=== PATIENT | male | born 1975 | race Caucasian/White ===

== ENCOUNTER 2018-07-14 17:33 | Emergency (ER) | payer BC, OTHER, MEDICAID, SELFPAY ==
[2018-07-14 17:35] VITALS: BP 139/77; PULSE 81; RESP 20; TEMP 36.8; O2SAT 99
[2018-07-14 18:10] VITALS: BP 110/71; PULSE 80; RESP 19; O2SAT 98
--- NOTE | 2018-07-14 18:13 | ED.GENADULT ---
HPI - General Adult General Chief complaint: Dizziness Stated complaint: nausea/cold sweats/heartburn x14 days Time Seen by Provider: 07/14/18 17:44 Source: patient Mode of arrival: ambulatory Limitations: no limitations History of Present Illness HPI narrative: Patient is a 42-year-old male here for evaluation of what he describes as heartburn for the past 2 weeks. He also states that he has occasional episodes where he has a sudden onset of nausea associated with cold sweats and lightheadedness. He states that the cold sweats and lightheadedness are only associated with the nausea. He states that the other day he had 1 episode where he belched a very acidic substance. The heartburn is also an occasional paired he has no complaints of chest pain or shortness of breath. He does not take nonsteroidal anti-inflammatories. Denies alcohol use. States that he has been under quite a bit of stress recently secondary to a moved to the local area. Has not had any change in stool color. No black colored stool. No recent antibiotics. No recent travel. No fevers. States that a couple months ago he had about 2 days of severe left upper quadrant pain that has since resolved. He also states that he takes blood pressure medicines and ran out of 1 of his blood pressure medicine so he doubled up on a 2nd 1. He does not think that the lightheadedness is associated with that. Related Data Previous Rx's Medication Instructions Recorded sucralfate [Carafate] 5 ml PO QID PRN #420 ml 07/14/18 Allergies Allergy/AdvReac Type Severity Reaction Status Date / Time No Known Drug Allergies Allergy Verified 07/14/18 17:47 Review of Systems Constitutional Reports chills, Denies fever(s), Denies headache(s) and Denies weakness ENT Ears, Nose, Mouth, and Throat: Denies headache(s) and Reports disequilibrium Cardiovascular Denies chest pain, Denies syncope and Denies dyspnea Respiratory Denies dyspnea Gastrointestinal Gastrointestinal: Denies abdominal pain, Reports belching, Denies change in stool character, Denies diarrhea, Denies nausea and Denies vomiting Genitourinary Denies dysuria Musculoskeletal Denies myalgias, Denies arthralgias and Denies tingling Integumentary/Breasts Denies rash Neurologic Denies burning sensations, Denies confusion, Denies syncope, Denies headache(s), Denies focal weakness, Denies tingling, Reports disequilibrium and Denies weakness Psychiatric Denies confusion Hematologic/Lymphatic Denies easy bleeding and Denies easy bruising [facility] Medical History Hypertension (Acute) Social History Smoking Status: Current every day smoker Social History Smoking Status: Current every day smoker Exam Initial Vital Signs Initial Vital Signs: Vital Signs Temperature 98.2 F 07/14/18 17:35 Pulse Rate 81 07/14/18 17:35 Respiratory Rate 20 07/14/18 17:35 Blood Pressure 139/77 07/14/18 17:35 Pulse Oximetry 99 07/14/18 17:35 Const General: cooperative, healthy appearing, comfortable, well developed, well groomed and No acute distress Orientation: alert and awake HENMT Head: normal to inspection and normocephalic Resp Effort & Inspection: normal respiratory effort Auscultation: clear to auscultation bilaterally Cardio Rate: regular rate Rhythm: regular rhythm Pulses: radial pulses present GI Inspection: non-distended Palpation: soft, No firm and No tender Skin Lesions: no lesions Rashes: no rashes Neuro General: alert and awake Cognition: normal cognition Speech: speech normal Gait: normal gait Extrem General: normal to inspection and capillary refill normal Psych Appearance: grossly normal and well kempt Course Orders Ordered: ED Orders 07/14/18 17:42 EKG-12 Lead Stat 07/14/18 18:10 Complete Blood Count AUTO DIFF Stat Comprehensive Metabolic Panel Stat Lipase Stat Troponin I Stat Discontinued Medications Pantoprazole Sodium (Protonix) 40 mg IV NOW ONE Stop: 07/14/18 18:26 Last Admin: 07/14/18 18:45 Dose: 40 mg Vital Signs - 8 hr 07/14/18 17:35 07/14/18 18:10 07/14/18 18:30 Temperature 98.2 F Pulse Rate 81 80 74 Respiratory Rate 20 19 23 Blood Pressure 139/77 Blood Pressure [Left Arm] 110/71 111/65 Pulse Oximetry 99 98 99 07/14/18 19:00 Temperature Pulse Rate 80 Respiratory Rate 18 Blood Pressure Blood Pressure [Left Arm] 118/66 Pulse Oximetry 99 Medical Decision Making Lab Data Lab results reviewed: Yes I reviewed the patient's lab results. Result diagrams: 07/14/18 18:10 07/14/18 18:10 Lab Results 07/14/18 07/14/18 Range/Units 18:10 18:10 WBC 10.6 (4.5-11.0) X10^3/uL RBC 5.21 (4.5-5.9) X10^6/uL Hgb 14.1 (13.5-17.5) g/dL Hct 43.0 (41-53) % MCV 82.5 (80-100) fL MCH 27.2 (26-34) PG MCHC 32.9 (30-36) % RDW 13.8 (11.6-14.8) % Plt Count 364 (150-400) X10^3/uL Neut % (Auto) 58.7 (50-75) % Lymph % (Auto) 30.6 (25-40) % Gilchrist % (Auto) 6.6 (3-14) % Eos % (Auto) 2.9 (2-4) % Baso % (Auto) 1.2 (0-2) % Neut # (Auto) 6200 (7168-8914) /uL Lymph # (Auto) 3300 (5806-5920) /uL Gilchrist # (Auto) 700 (0-900) /uL Eos # (Auto) 300 (0-450) /uL Baso # (Auto) 100 (0-100) /uL Sodium 137 (137-145) mmol/L Potassium 4.0 (3.4-5.1) mmol/L Chloride 101 (98-107) mmol/L Carbon Dioxide 28 (22-32) mmol/L BUN 15 (9-20) mg/dL Creatinine 1.00 (0.66-1.25) mg/dL Estimated GFR > 60.0 (>60) mL/min BUN/Creatinine Ratio 15.0 (6-22) Glucose 99 (70-100) mg/dL Calcium 9.3 (8.4-10.2) mg/dL Total Bilirubin 0.3 (0.2-1.3) mg/dL AST 26 (17-59) IU/L ALT 41 (21-72) IU/L Alkaline Phosphatase 75 (38-126) U/L Troponin I < 0.012 (0.01-0.034) ng/mL Total Protein 7.2 (6.3-8.2) g/dL Albumin 4.0 (3.5-5.0) g/dL Globulin 3.2 (1.7-4.1) g/dL Albumin/Globulin Ratio 1.3 (1.0-2.8) Lipase 41 (23-300) U/L ECG Data Attestation: I personally reviewed and interpreted this ECG as follows: Prior ECG tracings: not available for review Interpretation: Sinus rhythm Ventricular rate is 71 Normal axis Normal intervals Normal QRS Normal QTC No ST T wave changes MDM Narrative Medical decision making narrative: Labs unremarkable. EKG is unremarkable. Troponin negative after 2 weeks symptoms. I have low suspicion for ACS. I do suspect that his symptoms are the result of reflux disease. He had a burping episode recently with an ascitic. Since that he states made his symptoms worse. He has waves of nausea that caused his lightheadedness. And then approximately 1 month ago had some left upper quadrant abdominal pain. He states that the Zantac he has been taking does help his symptoms somewhat. We did discuss the importance of him taking his proper blood pressure medications. Will sent home with prescription for Carafate. He was also given a phone number to establish primary care doctor here in the area. He is going to contact his old primary care doctor to discuss his blood pressure medicines. He was given strict return precautions and follow-up instructions. He expressed understanding and agreement with plan. Discharge Plan Departure Patient Disposition: Home Clinical Impression: Gastroesophageal reflux disease Qualifiers: Esophagitis presence: esophagitis presence not specified Qualified Code(s): K21.9 - Gastro-esophageal reflux disease without esophagitis Instructions: Gastroesophageal Reflux Disease (Alternative Therapy) Activity Restrictions/Additional Instructions: Recommend that you contact your primary doctor to discuss your blood pressure medications. Continue with the Zantac like we discussed. Start taking the Carafate like we discussed. You can also contact 360 talk with a health human resources compensation analyst here at the local hospital to establish her primary provider here in the area. Return to the emergency department for any new or worsening symptoms Prescriptions: New sucralfate [Carafate] 100 mg/mL suspension 5 ml PO QID PRN (Reason: reflux) Qty: 420 RF: 0
[2018-07-14 18:30] VITALS: BP 111/65; PULSE 74; RESP 23; O2SAT 99
[2018-07-14 18:39] LABS: Add Manual Diff / Slide Review NO; Basophils Absolute Auto 100 /uL (0-100); Basophils Percent Auto 1.2 % (0-2); Eosinophils Absolute Auto 300 /uL (0-450); Eosinophils Percent Auto 2.9 % (2-4); Hemoglobin 14.1 g/dL (13.5-17.5); Lymphocytes Absolute Auto 3300 /uL (1100-4500); Lymphocytes Percent Auto 30.6 % (25-40); Mean Corpuscular HGB Conc 32.9 % (30-36); Mean Corpuscular Hemoglobin 27.2 PG (26-34); Mean Corpuscular Volume 82.5 fL (80-100); Monocytes Absolute Auto 700 /uL (0-900); Monocytes Percent Auto 6.6 % (3-14); Neutrophils Absolute Auto 6200 /uL (1500-7000); Neutrophils Percent Auto 58.7 % (50-75); Platelet Count 364 X10^3/uL (150-400); Red Blood Cell Count 5.21 X10^6/uL (4.5-5.9); Red Cell Distribution Width 13.8 % (11.6-14.8); White Blood Cell Count 10.6 X10^3/uL (4.5-11.0)
[2018-07-14 18:43] LABS: Alanine Aminotransferase 41 IU/L (21-72); Albumin Globulin Ratio 1.3 (1.0-2.8); Alkaline Phosphatase 75 U/L (38-126); Aspartate Aminotransferase 26 IU/L (17-59); Bilirubin Total 0.3 mg/dL (0.2-1.3); Blood Urea Nitrogen 15 mg/dL (9-20); Calcium 9.3 mg/dL (8.4-10.2); Carbon Dioxide 28 mmol/L (22-32); Chloride 101 mmol/L (98-107); Estimated Glomerular Filt Rate > 60.0 mL/min (>60); Globulin 3.2 g/dL (1.7-4.1); Glucose 99 mg/dL (70-100); HEMOLYSIS < 15 (0-50); Lipase 41 U/L (23-300); Sodium 137 mmol/L (137-145); Total Protein 7.2 g/dL (6.3-8.2)
[2018-07-14] MEDS: PANTOPRAZOLE 40 MG VIAL IV (18:45)
[2018-07-14 18:55] LABS: Troponin I < 0.012 ng/mL (0.01-0.034)
[2018-07-14 19:00] VITALS: BP 118/66; PULSE 80; RESP 18; O2SAT 99
[2018-07-14 19:30] VITALS: BP 110/70; PULSE 88; RESP 17; O2SAT 97
[2018-07-14 19:47] VITALS: BP 110/70; PULSE 78; RESP 17; O2SAT 99
== END 2018-07-14 19:48 | disposition home or self-care (01) ==
PROVIDERS: Emergency Provider Emergency Medicine
DX: K21.9 Gastro-esophageal reflux disease without esophagitis (principal); R68.83 Chills (without fever); R42 Dizziness and giddiness
CPT/HCPCS: 36591; 80053; 83690; 84484; 85025; 93005; 93010; 96374; 99283; 99284; C9113

== ENCOUNTER 2018-12-10 21:44 | Emergency (ER) | payer OTHER, MEDICAID, SELFPAY ==
[2018-12-10 21:55] VITALS: BP 141/90; PULSE 91; RESP 18; TEMP 36.9; O2SAT 99; BMI 33.5
--- NOTE | 2018-12-10 22:06 | ED_ITS ---
HPI - Dental/Oral General Chief complaint: Dental/Oral Stated complaint: CYST RIGHT SIDE OF FACE Time Seen by Provider: 12/10/18 21:56 Source: patient Mode of arrival: Ambulatory Limitations: no limitations History of Present Illness HPI Narrative: Patient is a 43-year-old male who presents with a right lower dental pain. He says it has been ongoing for about a month he has appointment with a dentist in December. He was on 2 weeks of antibiotics a seem to help however it started coming back he feels like he has some swelling in the right side of his jaw. No neck pain no fevers no significant facial swelling. He denies any fevers. He has been taking Aleve for pain he took some about an hour ago. MD Complaint: tooth pain Teeth map: 1. Chronic a dental caries, no dental abscess. minimal right-sided facial swelling no abscess or fluctuation present Onset (ago): week(s) Duration: constant Severity: moderate Related Data Home Medications Medication Instructions Recorded Confirmed buprenorphine 12 mg-naloxone 3 mg See Rx Instructions SL DAILY 08/07/18 12/07/18 sublingual film Previous Rx's Medication Instructions Recorded bupropion HCl 300 mg 24 hr tablet, 300 mg PO QAM #90 tab 09/27/18 extended release hydroxyzine HCl 10 mg tablet 10 mg PO QID PRN #120 tab 09/27/18 amoxicillin 500 mg PO Q12H #20 cap 12/10/18 ibuprofen 800 mg PO Q8H PRN #30 tab 12/10/18 Allergies Allergy/AdvReac Type Severity Reaction Status Date / Time No Known Drug Allergies Allergy Verified 12/07/18 11:13 Review of Systems Review of Systems Narrative: GENERAL: Denies chills,fever HEENT: See HPI RESPIRATORY: Denies dyspnea, cough, wheezing CARDIOVASCULAR: Denies chest pain, palpitations GASTROINTESTINAL: Denies nausea, vomiting MUSCULOSKELETAL: Denies extremity pain, injury SKIN: No rash, no laceration, no pruritus NEUROLOGIC: Denies weakness, dizziness, headache, numbness 8 point review of systems is negative except for those stated above and HPI Patient History Medical History Medical History Anxiety (Chronic ~2002) Chicken pox (Resolved ~1992) Depression (Chronic ~2002) Hypertension (Chronic ~2015) Substance abuse (Chronic ~2002) Vision disorder (Chronic) Family History Family History Father Diabetes mellitus Mother Hypertension Sister Depression Anxiety Grandfather Cancer Grandmother Cancer Social History Social History Smoking Status: Current every day smoker alcohol intake frequency: 0-2 drinks per day Substance Use Type: does not use Exam Initial Vital Signs Initial Vital Signs: Vital Signs Temperature 98.5 F 12/10/18 21:55 Pulse Rate 91 H 12/10/18 21:55 Respiratory Rate 18 12/10/18 21:55 Blood Pressure 141/90 H 12/10/18 21:55 Pulse Oximetry 99 12/10/18 21:55 GENERAL: Well-appearing, well-nourished and in no acute distress. CARDIOVASCULAR: peripheral pulses in tact, cap refill <2 sec RESPIRATORY: No respiratory distress, speaks in full sentences without diffi culty [ABDOMEN: Soft, nontender, no guarding or rebound] EXTREMITIES: Normal range of motion, no clubbing or edema. Neurovascularly intact NEUROLOGICAL: Cranial nerves II through XII grossly intact. Normal gait and speech. SKIN: Warm, dry, no petechiae, no rashes or lesions. Course Orders Ordered: Discontinued Medications Amoxicillin ( Trimox 250mg Prepack) 1 bottle MISC SEEINSTR ONE Stop: 12/10/18 22:06 Last Admin: 12/10/18 22:12 Dose: 1 bottle Documented by: CPRUITT Vital Signs Vital signs: Vital Signs - 8 hr 12/10/18 21:55 12/10/18 22:22 Temperature 98.5 F Pulse Rate 91 H 91 H Respiratory Rate 18 16 Blood Pressure 141/90 H 141/90 H Pulse Oximetry 99 99 MDM - Dental/Oral MDM Narrative Medical decision making narrative: The patient has no significant swelling or pain in his neck. No sign of [place] angina at this time. However I did discuss this with him. Will start him on antibiotics. Discharge Plan Departure Patient Disposition: Home Clinical Impression: Dental caries Discharge Date/Time: 12/10/18 22:24 Instructions: DI for Dental Pain Activity Restrictions/Additional Instructions: *You have been diagnosed with dental pain *What to do: Monitor for worsening infection. Need to see dentist *Continue to take medications as directed--> [facility] [place] Amoxicillin 500 mg twice a day for 10 days *Follow up with your primary care provider in 2-3 days *Return to ER if you should have in increase swelling of the neck or the jaw, tongue pain, difficulty breathing or any new, worsening or concerning symptoms Prescriptions: New amoxicillin 500 mg capsule 500 mg PO Q12H Qty: 20 RF: 0 ibuprofen 800 mg tablet 800 mg PO Q8H PRN (Reason: pain) Qty: 30 RF: 0 No Action buprenorphine-naloxone [Suboxone] 12-3 mg film See Rx Instructions SL DAILY RF: 0 bupropion HCl 300 mg tablet extended release 24 hr 300 mg PO QAM Qty: 90 RF: 3 hydroxyzine HCl 10 mg tablet 10 mg PO QID PRN (Reason: anxiety) Qty: 120 RF: 1 Referrals: [facility] [Outside]
[2018-12-10] MEDS: AMOXICILLIN 250 MG PREPACK 1 BOTTLE MISC (22:12)
[2018-12-10 22:22] VITALS: BP 141/90; PULSE 91; RESP 16; O2SAT 99
== END 2018-12-10 22:24 | disposition home or self-care (01) ==
PROVIDERS: Emergency Provider Emergency Medicine
DX: K02.9 Dental caries, unspecified (principal)
CPT/HCPCS: 99282

== ENCOUNTER → 2019-01-15 14:22 | Outpatient (CLI) | payer OTHER, MEDICAID, SELFPAY ==
--- NOTE | 2019-01-15 14:25 | DI.US.S_ITS ---
PROCEDURE: US ABDOMEN LIMITED INDICATIONS: right upper quadrant pain intermittent rule out hernia TECHNIQUE: Real-time focused scanning was performed of the abdomen, with image documentation. COMPARISON: None. FINDINGS: Sonographic evaluation identifies no hernia or fascial defect through the peritoneal margin in the area of reported patient clinical concern for intermittent hernia. IMPRESSION: No hernia found at time of scanning despite aggressive maneuvers with Valsalva procedure, and scanning both at adjacent to the area of reported prior intermittent herniation. Occasionally CT scanning can detect a peritoneal defect no identifiable by ultrasound. CT scanning may be warranted, therefore. Dictated by: Misael Noyola M.D. on 01/15/2019 at 16:30 Approved by: Misael Noyola M.D. on 01/15/2019 at 16:31
== END ==
PROVIDERS: Visit Provider Nurse Practitioner
DX: R10.11 Right upper quadrant pain (principal)
CPT/HCPCS: 76705

== ENCOUNTER 2019-07-17 10:03 | Emergency (ER) | payer OTHER, MEDICAID, SELFPAY ==
--- NOTE | 2019-07-17 10:08 | DI.RAD.S_ITS ---
PROCEDURE: XR CHEST 1V INDICATIONS: Chest pressure TECHNIQUE: One view of the chest was acquired. COMPARISON: None. FINDINGS: Surgical changes and devices: None. Lungs and pleura: Lungs are clear. No pleural effusions or pneumothorax. Mediastinum: Mediastinal contours appear normal. Heart size is normal. Bones and chest wall: No suspicious bony lesions. Overlying soft tissues appear unremarkable. IMPRESSION: No acute pulmonary process. Dictated by: Abigail Villa M.D. on 07/17/2019 at 10:37 Approved by: Abigail Villa M.D. on 07/17/2019 at 11:00
[2019-07-17 10:10] VITALS: BP 140/92; PULSE 59; RESP 14; TEMP 36.7; O2SAT 96; BMI 32.5
--- NOTE | 2019-07-17 10:40 | ED.CHESTPAIN ---
HPI - Chest Pain General Chief Complaint: Chest Pain Stated Complaint: chest pressure/cold sweats x1 day Time Seen by Provider: 07/17/19 10:08 Source: patient Mode of arrival: Ambulatory Limitations: no limitations History of Present Illness HPI narrative: 43-year-old otherwise healthy male here for evaluation of left-sided/retrosternal chest pain. He states that it occurred this morning at approximately 0830. This was several hours after he woke up. He states it was a fairly sudden onset. He is unable to describe the character of the pain. Unsure exactly how long it lasted. Was not associated with shortness of breath. Not worse with movement or palpation or eating or swallowing or breathing. Has never had anything like this before. Since that time it has come and gone. The time my evaluation he says it was there ?slightly? does express some subjective fevers over the past day. No coughing. No belly pain. No nausea vomiting. Has not tried anything for his symptoms. Related Data Home Medications Medication Instructions Recorded Confirmed buprenorphine 12 mg-naloxone 3 mg See Rx Instructions SL DAILY 08/07/18 03/21/19 sublingual film Previous Rx's Medication Instructions Recorded ibuprofen 800 mg PO Q8H PRN #30 tab 12/10/18 albuterol sulfate 90 mcg/actuation 2 puff INHALATION Q4-6H PRN #8.5 01/14/19 aerosol inhaler gram bupropion HCl 300 mg 24 hr tablet, 300 mg PO QAM #90 tab 03/21/19 extended release hydroxyzine HCl 10 mg tablet 10 mg PO QID PRN #120 tab 07/01/19 Allergies Allergy/AdvReac Type Severity Reaction Status Date / Time No Known Drug Allergies Allergy Verified 07/17/19 10:21 Review of Systems Constitutional Constitutional: Denies chills and Reports fever(s) (Subjective) Cardiovascular Cardiovascular: Reports chest pain, Denies rapid heart rate, Denies edema, Denies irregular heart rhythm, Denies palpitations and Denies dyspnea Respiratory Respiratory: Denies cough and Denies dyspnea Gastrointestinal Gastrointestinal: Denies abdominal pain, Denies nausea and Denies vomiting Musculoskeletal Musculoskeletal: Denies myalgias and Denies arthralgias Integumentary/Breasts Skin/Breast: Denies lesions and Denies rash Neurologic Neurologic: Denies behavioral changes Psychiatric Psychiatric: Denies behavioral changes Endocrine Endocrine: Denies palpitations Hematologic/Lymphatic Hematologic/Lymphatic: Denies easy bleeding and Denies easy bruising Patient History Medical History Anxiety (Chronic ~2002) Chicken pox (Resolved ~1992) Depression (Chronic ~2002) Hypertension (Chronic ~2015) Substance abuse (Chronic ~2002) Vision disorder (Chronic) Surgical History (Updated 11/12/18 @ 09:26 by Porfirio Goncalves MD) Anesthesia (Resolved) History of knee surgery (Resolved) Social History Smoking Status: Current every day smoker Smoking Status: Current every day smoker alcohol intake frequency: 0-2 drinks per day Substance Use Type: does not use and marijuana Exam Initial Vital Signs Initial Vital Signs: Vital Signs Temperature 98.0 F 07/17/19 10:10 Pulse Rate 59 L 07/17/19 10:10 Respiratory Rate 14 07/17/19 10:10 Blood Pressure 140/92 H 07/17/19 10:10 Pulse Oximetry 96 07/17/19 10:10 Const General: cooperative, comfortable and well developed Limitations: mental status not altered HENMT Head: normal to inspection and normocephalic Chest Chest: No crepitus and No tenderness Resp Effort & Inspection: normal respiratory effort Auscultation: clear to auscultation bilaterally Cardio Rate: regular rate Rhythm: regular rhythm GI Inspection: non-distended Palpation: soft Skin Lesions: no lesions Rashes: no rashes Neuro General: alert and awake Cognition: normal cognition Speech: speech normal Extrem General: normal to inspection and capillary refill normal Psych Appearance: grossly normal and well kempt Scores GCS Higinio coma scale eye opening: Spontaneous Higinio coma scale verbal response: Orientated [place] coma scale motor response: Obey commands Higinio coma scale total score: 15 HEART Score Heart Score history: Slightly Suspicious Heart Score EKG: Normal Heart Score Age: < 45 years old Heart Score risk factors: No known risk factors Heart Score troponin: < or = to normal limit Heart Score Total: 0 Course Orders Ordered: ED Orders 07/17/19 10:08 XR chest 1V Stat EKG-12 Lead Stat 07/17/19 10:15 Complete Blood Count AUTO DIFF Stat Comprehensive Metabolic Panel Stat Lipase Stat 07/17/19 11:34 Troponin I Stat Vital Signs Vital signs: Vital Signs - 8 hr 07/17/19 10:10 07/17/19 11:28 07/17/19 13:13 Temperature 98.0 F Pulse Rate 59 L 53 L 57 L Respiratory Rate 14 12 12 Blood Pressure 140/92 H Blood Pressure [Right Arm] 130/73 123/74 Pulse Oximetry 96 95 98 MDM - Chest Pain Lab Data Attestation: I reviewed the patient's lab results. Result diagrams: 07/17/19 10:15 07/17/19 10:15 Labs: Lab Results 07/17/19 07/17/19 07/17/19 Range/Units 10:15 10:15 11:34 WBC 6.1 (4.5-11.0) X10^3/uL RBC 5.59 (4.5-5.9) X10^6/uL Hgb 15.2 (13.5-17.5) g/dL Hct 45.7 (41-53) % MCV 81.7 (80-100) fL MCH 27.2 (26-34) PG MCHC 33.3 (30-36) % RDW 13.7 (11.6-14.8) % Plt Count 338 (150-400) X10^3/uL Neut % (Auto) 56.0 (50-75) % Lymph % (Auto) 31.8 (25-40) % Chase % (Auto) 7.6 (3-14) % Eos % (Auto) 3.8 (2-4) % Baso % (Auto) 0.8 (0-2) % Neut # (Auto) 3400 (9409-1950) /uL Lymph # (Auto) 1900 (8109-6811) /uL Chase # (Auto) 500 (0-900) /uL Eos # (Auto) 200 (0-450) /uL Baso # (Auto) 0 (0-100) /uL Sodium 137 (137-145) mmol/L Potassium 4.4 (3.4-5.1) mmol/L Chloride 105 (98-107) mmol/L Carbon Dioxide 25 (22-32) mmol/L BUN 15 (9-20) mg/dL Creatinine 0.92 (0.66-1.25) mg/dL Estimated GFR > 60.0 (>60) mL/min BUN/Creatinine Ratio 16.3 (6-22) Glucose 109 H (70-100) mg/dL Calcium 9.6 (8.4-10.2) mg/dL Total Bilirubin 0.5 (0.2-1.3) mg/dL AST 37 (17-59) IU/L ALT 33 (<50) IU/L Alkaline Phosphatase 77 (38-126) U/L Troponin I < 0.012 (0.01-0.034) ng/mL Total Protein 8.2 (6.3-8.2) g/dL Albumin 4.5 (3.5-5.0) g/dL Globulin 3.7 (1.7-4.1) g/dL Albumin/Globulin Ratio 1.2 (1.0-2.8) Lipase 44 (23-300) U/L Imaging Data Chest x-ray: Radiologist's Impression: [address] [address] XRay Report Signed Patient: Tylor Toledo JMR#: [id number] : 1975Acct:[id number] Age/Sex: 43 / MDate of Service: 07/17/19 Loc: ED Accession Number: [id number] Procedure: XR chest 1V Ordering Provider: David Jackson D.O. PROCEDURE: XR CHEST 1V INDICATIONS: Chest pressure TECHNIQUE: One view of the chest was acquired. COMPARISON: None. FINDINGS: Surgical changes and devices: None. Lungs and pleura: Lungs are clear. No pleural effusions or pneumothorax. Mediastinum: Mediastinal contours appear normal. Heart size is normal. Bones and chest wall: No suspicious bony lesions. Overlying soft tissues appear unremarkable. IMPRESSION: No acute pulmonary process. Dictated by: Abigail Villa M.D. on 07/17/2019 at 10:37 Approved by: Abigail Villa M.D. on 07/17/2019 at 11:00 ECG Data Attestation: I personally reviewed and interpreted this ECG as follows: Prior ECG tracings: not available for review Interpretation: Sinus rhythm Ventricular rate is 69 Normal axis Normal QRS Normal QTC No ST T wave changes Repeat EKG Sinus bradycardic sign ventricular rate of 52 Normal axis Normal QRS Normal QTC No ST T wave changes MDM Narrative Medical decision making narrative: Chest x-ray is unremarkable. Troponin negative. EKG unremarkable x2. Patient states the symptoms come and go. This is a low risk heart score. Discussed with him staying in the emergency department for 2nd troponin however the patient declined the 2nd test. We did discuss the risks and benefits of this. He expressed understanding. He was alert oriented x3. GCS 15. In my opinion has the capacity to make decisions patient was given return precautions and follow-up instructions. He expressed understanding and agreement Discharge Plan Departure Patient Disposition: Home Clinical Impression: Atypical chest pain, Bradycardia Instructions: DI for Atypical Chest Pain Activity Restrictions/Additional Instructions: Recommend that you talk with your primary provider about a follow-up and to discuss the indications for a stress test. Return to the emergency department for any new or worsening symptoms Prescriptions: No Action albuterol sulfate 90 mcg/actuation HFA aerosol inhaler 2 puff INHALATION Q4-6H PRN (Reason: bronchospasm) Qty: 8.5 RF: 0 hydroxyzine HCl 10 mg tablet 10 mg PO QID PRN (Reason: anxiety) Qty: 120 RF: 1 buprenorphine-naloxone [Suboxone] 12-3 mg film See Rx Instructions SL DAILY RF: 0 bupropion HCl 300 mg tablet extended release 24 hr 300 mg PO QAM Qty: 90 RF: 3 ibuprofen 800 mg tablet 800 mg PO Q8H PRN (Reason: pain) Qty: 30 RF: 0 Referrals: Alexandra Vidal ARNP [Primary Care Provider] -
[2019-07-17 11:16] LABS: Add Manual Diff / Slide Review NO; Basophils Absolute Auto 0 /uL (0-100); Basophils Percent Auto 0.8 % (0-2); Eosinophils Absolute Auto 200 /uL (0-450); Eosinophils Percent Auto 3.8 % (2-4); Hematocrit 45.7 % (41-53); Hemoglobin 15.2 g/dL (13.5-17.5); Lymphocytes Absolute Auto 1900 /uL (1100-4500); Lymphocytes Percent Auto 31.8 % (25-40); Mean Corpuscular HGB Conc 33.3 % (30-36); Mean Corpuscular Hemoglobin 27.2 PG (26-34); Mean Corpuscular Volume 81.7 fL (80-100); Monocytes Absolute Auto 500 /uL (0-900); Monocytes Percent Auto 7.6 % (3-14); Neutrophils Absolute Auto 3400 /uL (1500-7000); Platelet Count 338 X10^3/uL (150-400); Red Blood Cell Count 5.59 X10^6/uL (4.5-5.9); Red Cell Distribution Width 13.7 % (11.6-14.8); White Blood Cell Count 6.1 X10^3/uL (4.5-11.0)
[2019-07-17 11:21] LABS: Alanine Aminotransferase 33 IU/L (<50); Albumin 4.5 g/dL (3.5-5.0); Albumin Globulin Ratio 1.2 (1.0-2.8); Alkaline Phosphatase 77 U/L (38-126); Aspartate Aminotransferase 37 IU/L (17-59); BUN Creatinine Ratio 16.3 (6-22); Bilirubin Total 0.5 mg/dL (0.2-1.3); Blood Urea Nitrogen 15 mg/dL (9-20); Calcium 9.6 mg/dL (8.4-10.2); Carbon Dioxide 25 mmol/L (22-32); Chloride 105 mmol/L (98-107); Estimated Glomerular Filt Rate > 60.0 mL/min (>60); Globulin 3.7 g/dL (1.7-4.1); Glucose 109 mg/dL (70-100); HEMOLYSIS < 15 (0-50); Lipase 44 U/L (23-300); Potassium 4.4 mmol/L (3.4-5.1); Sodium 137 mmol/L (137-145); Total Protein 8.2 g/dL (6.3-8.2)
[2019-07-17 11:28] VITALS: BP 130/73; PULSE 53; RESP 12; O2SAT 95
[2019-07-17 11:57] LABS: Troponin I < 0.012 ng/mL (0.01-0.034)
--- NOTE | 2019-07-17 12:43 | PC.NURSE ---
Patient monitor alarmed 41PBM. Patient sleeping. woke patient asymptomatic at this time. Repeat EKG ordered. Provider Renetta aware. No additional orders at this time.
[2019-07-17 13:13] VITALS: BP 123/74; PULSE 57; RESP 12; O2SAT 98
--- NOTE | 2019-07-17 13:15 | PC.NURSE ---
patient is up at bedside. His BP was in the high 40s. His skin is flushed. He denies any lightheadedness or dizzyness or discomfort. He would like to be discharged before the repeat troponin 1 test is done.
[2019-07-17 13:17] VITALS: BP 123/98; PULSE 57; RESP 24; O2SAT 98
== END 2019-07-17 13:19 | disposition home or self-care (01) ==
PROVIDERS: Emergency Provider Emergency Medicine; PCP Nurse Practitioner
DX: R07.89 Other chest pain (principal); R00.1 Bradycardia, unspecified
CPT/HCPCS: 36415; 71045; 80053; 83690; 84484; 85025; 93005; 99284

== ENCOUNTER → 2019-09-15 15:09 | Outpatient (CLI) | payer OTHER, MEDICAID, SELFPAY ==
[2019-09-16 14:07] LABS: COVID19 Sendout Not Detected (Not Detect)
== END ==
PROVIDERS: PCP Nurse Practitioner; Visit Provider Physician Assistant
DX: Z01.812 Encounter for preprocedural laboratory examination (principal)
CPT/HCPCS: 87635

== ENCOUNTER → 2019-09-18 12:50 | Outpatient (CLI) | payer OTHER, MEDICAID, SELFPAY ==
--- NOTE | 2019-09-18 13:44 | PM.TREADMILL ---
Cardiac Stress Test Report Referral & Results Date Patient Seen: 09/18/19 Time Patient Seen: 13:30 Requesting provider: Alexandra Vidal Indication: Chest pain Rest ECG: Normal sinus rhythm Procedure Note: Today following both written and verbal informed consent, the patient was exercised according to a standard Pedro protocol. The patient exercised for a total of 10 minutes 57 seconds achieving a maximum heart rate of 190. Patient's maximum systolic blood pressure was 192. This was an estimated 12.8 METs. Normal hemodynamic response to exercise. No signs or symptoms of angina. Presenting symptom not reproduced on exercise. Occasional PVCs, but no other change in rhythm. No ST deviations. Normal exercise capacity (SYLVIA +5% on active scale). Impression: Low probability for ischemia. Greco treadmill score of 11 is correlated with 97% 5 year survival rate from cardiac causes of mortality. Consider non-cardiac cause for chief complaint. Please note: Actual ECG tracings can be found in the PACS system.
[2019-09-18 14:21] LABS: Hematocrit 45.2 % (41-53); Hemoglobin 14.5 g/dL (13.5-17.5); Mean Corpuscular Hemoglobin 26.6 PG (26-34); Mean Corpuscular Volume 83.3 fL (80-100); Platelet Count 337 X10^3/uL (150-400); Red Blood Cell Count 5.43 X10^6/uL (4.5-5.9); Red Cell Distribution Width 14.4 % (11.6-14.8); White Blood Cell Count 11.6 X10^3/uL (4.5-11.0)
[2019-09-18 14:35] LABS: Albumin 4.7 g/dL (3.5-5.0); Albumin Globulin Ratio 1.5 (1.0-2.8); Alkaline Phosphatase 90 U/L (38-126); Aspartate Aminotransferase 37 IU/L (17-59); BUN Creatinine Ratio 10.8 (6-22); Bilirubin Total 0.6 mg/dL (0.2-1.3); Blood Urea Nitrogen 10 mg/dL (9-20); Calcium 9.3 mg/dL (8.4-10.2); Carbon Dioxide 15 mmol/L (22-32); Chloride 104 mmol/L (98-107); Cholesterol 224 mg/dL (140-199); Estimated Glomerular Filt Rate > 60.0 mL/min (>60); Globulin 3.2 g/dL (1.7-4.1); Glucose 95 mg/dL (70-100); HDL Cholesterol 47 mg/dL (40-60); HEMOLYSIS < 15 (0-50); LDL Cholesterol Calculated 134 mg/dL (<100); Potassium 4.2 mmol/L (3.4-5.1); Sodium 137 mmol/L (137-145); Total Protein 7.9 g/dL (6.3-8.2); Triglycerides 216 mg/dL (35-150)
[2019-09-18 14:36] LABS: Neutrophils Absolute Manual 7772 /uL (3000-5900); RBC Morphology Normal Morphology; Total Cells Counted 100
[2019-09-18 14:41] LABS: Alanine Aminotransferase 36 IU/L (<50)
[2019-09-18 14:53] LABS: Free T3, Triiodothyronine Free 3.26 pg/mL (2.77-5.27); Free T4, Direct Thyroxine 1.21 ng/dL (0.78-2.19)
[2019-09-18 15:05] LABS: Prostate Specific Antigen 0.172 ng/mL (0.10-4.00)
[2019-09-18 15:07] LABS: Thyroid Stimulating Hormone 1.54 uIU/mL (0.47-4.68)
== END ==
PROVIDERS: PCP Nurse Practitioner; Referring Provider Nurse Practitioner; Visit Provider Nurse Practitioner
DX: Z00.00 Encounter for general adult medical examination without abnormal findings (principal); R07.89 Other chest pain; Z12.11 Encounter for screening for malignant neoplasm of colon
CPT/HCPCS: 36415; 80053; 80061; 84153; 84439; 84443; 84481; 85025; 93016; 93017; 93018

== ENCOUNTER 2019-12-03 17:36 | Emergency (ER) | payer OTHER, MEDICAID, SELFPAY ==
[2019-12-03 17:52] VITALS: BP 139/101; PULSE 68; RESP 14; TEMP 36.4; O2SAT 100; BMI 35.1
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
[2019-12-03] MEDS: IBUPROFEN 400 MG TABLET PO (18:30)
[2019-12-03] MEDS: TET,DIPH,PERTUSS(ACELL),VAC/PF 0.5 ML SYRINGE IM (18:31)
[2019-12-03] MEDS: ACETAMINOPHEN 325 MG TABLET 650 MG PO (18:31)
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
[2019-12-03] MEDS: SILVER SULFADIAZINE 1% CREAM 50 GM 1 APPLIC TOP (19:05)
[2019-12-03 20:17] VITALS: BP 138/82; PULSE 59; O2SAT 98
== END 2019-12-03 20:17 | disposition home or self-care (01) ==
PROVIDERS: Emergency Provider Nurse Practitioner Family; PCP Nurse Practitioner
DX: T23.201A Burn of second degree of right hand, unspecified site, initial encounter (principal); Z23 Encounter for immunization
CPT/HCPCS: 90471; 99283; 90715

== ENCOUNTER → 2019-12-10 10:54 | Outpatient (CLI) | payer OTHER, MEDICAID, SELFPAY ==
--- NOTE | 2019-12-10 11:20 | DI.RAD.S_ITS ---
PROCEDURE: XR CHEST 2V INDICATIONS: cough TECHNIQUE: 2 views of the chest were acquired. COMPARISON: [facility], CR, XR CHEST 1V, 07/17/2019, 10:25. FINDINGS: Surgical changes and devices: None. Lungs and pleura: No consolidative opacity. Small nodular opacity at the posterior inferior lung seen on the lateral projection. No pleural effusions or pneumothorax. Mediastinum: Mediastinal contours are normal. Heart size is normal. Bones and chest wall: No suspicious bony abnormalities. Soft tissues appear unremarkable. IMPRESSION: No consolidation to suggest pneumonia. Small nodular opacity at the posterior inferior lung seen on the lateral projection. This could represent a small pulmonary nodule. -this could be further evaluated with CT of the chest. Dictated by: Cody Chiu M.D. on 12/10/2019 at 15:05 Approved by: Cody Chiu M.D. on 12/10/2019 at 15:07
[2019-12-10 12:46] LABS: Add Manual Diff / Slide Review NO; Basophils Absolute Auto 100 /uL (0-100); Basophils Percent Auto 1.2 % (0-2); Eosinophils Absolute Auto 200 /uL (0-450); Eosinophils Percent Auto 2.8 % (2-4); Hematocrit 42.2 % (41-53); Hemoglobin 13.9 g/dL (13.5-17.5); Lymphocytes Absolute Auto 1700 /uL (1100-4500); Lymphocytes Percent Auto 20.7 % (25-40); Mean Corpuscular HGB Conc 32.9 % (30-36); Mean Corpuscular Volume 81.9 fL (80-100); Monocytes Absolute Auto 500 /uL (0-900); Monocytes Percent Auto 5.8 % (3-14); Neutrophils Absolute Auto 5500 /uL (1500-7000); Neutrophils Percent Auto 69.5 % (50-75); Platelet Count 307 X10^3/uL (150-400); Red Blood Cell Count 5.15 X10^6/uL (4.5-5.9); Red Cell Distribution Width 13.7 % (11.6-14.8)
[2019-12-10 13:20] LABS: Free T3, Triiodothyronine Free 3.13 pg/mL (2.77-5.27); Free T4, Direct Thyroxine 1.16 ng/dL (0.78-2.19)
[2019-12-10 13:34] LABS: Thyroid Stimulating Hormone 0.798 uIU/mL (0.47-4.68)
== END ==
PROVIDERS: Family Provider Nurse Practitioner; PCP Nurse Practitioner; Referring Provider Nurse Practitioner; Visit Provider Nurse Practitioner
DX: T23.201A Burn of second degree of right hand, unspecified site, initial encounter (principal); T23.231A Burn of second degree of multiple right fingers (nail), not including thumb, initial encounter; R63.4 Abnormal weight loss
CPT/HCPCS: 36415; 71046; 84439; 84443; 84481; 85025; 87070; 87077; 87147; 87186; 87205

== ENCOUNTER → 2019-12-11 10:16 | Outpatient (CLI) | payer OTHER, MEDICAID, SELFPAY ==
[2019-12-11 16:02] LABS: Alanine Aminotransferase 32 IU/L (<50); Albumin Globulin Ratio 1.3 (1.0-2.8); Alkaline Phosphatase 77 U/L (38-126); Aspartate Aminotransferase 29 IU/L (17-59); BUN Creatinine Ratio 14.6 (6-22); Bilirubin Total 0.5 mg/dL (0.2-1.3); Blood Urea Nitrogen 14 mg/dL (9-20); Calcium 9.4 mg/dL (8.4-10.2); Carbon Dioxide 27 mmol/L (22-32); Chloride 104 mmol/L (98-107); Estimated Glomerular Filt Rate > 60.0 mL/min (>60); Globulin 3.1 g/dL (1.7-4.1); Glucose 112 mg/dL (70-100); HEMOLYSIS < 15 (0-50); Potassium 4.8 mmol/L (3.4-5.1); Sodium 137 mmol/L (137-145); Total Protein 7.1 g/dL (6.3-8.2)
== END ==
PROVIDERS: Family Provider Nurse Practitioner; PCP Nurse Practitioner; Referring Provider Nurse Practitioner; Visit Provider Nurse Practitioner
DX: Z01.812 Encounter for preprocedural laboratory examination (principal)
CPT/HCPCS: 80053

== ENCOUNTER → 2019-12-16 11:35 | Outpatient (CLI) | payer OTHER, MEDICAID, SELFPAY | PROVIDERS: Family Provider Nurse Practitioner; PCP Nurse Practitioner; Referring Provider Nurse Practitioner; Visit Provider Family Medicine | DX: T23.231A Burn of second degree of multiple right fingers (nail), not including thumb, initial encounter (principal) | CPT/HCPCS: 16020; 99203; 99213 ==

== ENCOUNTER → 2019-12-17 12:07 | Outpatient (CLI) | payer OTHER, MEDICAID, SELFPAY ==
--- NOTE | 2019-12-17 12:43 | DI.CT.S_ITS ---
PROCEDURE: CT CHEST W CON INDICATIONS: pulmonary nodule on chest x-ray TECHNIQUE: After the administration of intravenous contrast, 5 mm thick sections acquired from the pulmonary apices to the posterior costophrenic angles. 1 mm axial lung, 5 mm thick coronal and sagittal reformats and 7 mm axial MIP were acquired. For radiation dose reduction, the following was used: automated exposure control, adjustment of mA and/or kV according to patient size. COMPARISON: [facility], CR, XR CHEST 2V, 12/10/2019, 11:08. FINDINGS: Image quality: Excellent. Lungs and pleura: No discrete pulmonary nodule or mass. No acute consolidation. No pleural effusions or pneumothorax. Central and peripheral airways are patent and normal in caliber. Mediastinum: Heart size is normal. No pericardial effusion. No mediastinal or hilar adenopathy by size criteria. There is triangular-shaped soft tissue in the anterior mediastinum compatible with residual thymus. Thoracic aorta and central pulmonary arteries are normal in size. Esophagus is normal in caliber. No hiatal hernia. Bones and chest wall: No suspicious bony lesions. No vertebral body compression fractures. No axillary or supraclavicular adenopathy by size criteria. Abdomen: Visualized upper abdominal solid organs appear normal. Upper abdominal bowel loops are normal in caliber. IMPRESSION: 1. No discrete pulmonary nodule or mass. The findings on prior chest x-ray likely represented overlapping vascular and bony structures. Dictated by: Satinder Can M.D. on 12/17/2019 at 13:01 Approved by: Satinder Can M.D. on 12/17/2019 at 13:12
== END ==
PROVIDERS: Family Provider Nurse Practitioner; PCP Nurse Practitioner; Referring Provider Nurse Practitioner; Visit Provider Nurse Practitioner
DX: R91.1 Solitary pulmonary nodule (principal)
CPT/HCPCS: 71260; Q9967

== ENCOUNTER 2020-06-29 19:22 | Emergency (ER) | payer OTHER, MEDICAID, SELFPAY ==
--- NOTE | 2020-06-29 19:32 | ED_ITS ---
HPI - Dental/Oral General Chief complaint: Dental/Oral Stated complaint: TOOTH INFECTION MIGRAINE HEADACHES Time Seen by Provider: 06/29/20 19:25 Source: patient Mode of arrival: Ambulatory Limitations: no limitations History of Present Illness HPI Narrative: 44-year-old male smoker with history of dental problems that had previously been addressed at the [facility], however he has had no follow-up since COVID, presents with a chief complaint of ongoing and worsening dental pain primarily on the left upper molars with associated facial swelling. He states he has been having trouble for at least the past few weeks but things are ramping up. He denies any swelling inside his mouth nor drainage of foul tasting fluid. He has had no fever or chills nor nausea or vomiting. He has been trying but unable to seek local dental care. He states he has had some mild generalized headache with gradual onset over the past few days. He denies any obvious provocation or palliation and denies any focal neurologic symptoms such as blurred vision, trouble with speech, numbness, tingling or weakness. He denies any neck pain. He denies the use of blood thinners. He denies any trauma MD Complaint: tooth pain Teeth map: 1. Onset (ago): month(s) Duration: intermittent Severity: moderate Relieving factors: nothing Exacerbating factors: chewing and heat Context: history of dental caries and poor dental care Treatment prior to arrival: none Related Data Home Medications Medication Instructions Recorded Confirmed buprenorphine 12 mg-naloxone 3 mg See Rx Instructions SL DAILY 08/07/18 12/10/19 sublingual film Previous Rx's Medication Instructions Recorded bupropion HCl 150 mg 24 hr tablet, 150 mg PO QAM #90 tab 10/07/19 extended release hydroxyzine HCl 10 mg tablet 10 mg PO QID PRN #120 tab 10/07/19 silver sulfadiazine 1 % topical 1 applictn TOP DAILY #25 gram 12/10/19 cream sulfamethoxazole 800 1 tab PO Q12H #28 tab 12/10/19 mg-trimethoprim 160 mg tablet varenicline 1 mg tablet 1 mg PO BID #56 tab 12/10/19 bupropion HCl 300 mg 24 hr tablet, 300 mg PO QAM #90 tab 05/06/20 extended release amoxicillin-pot clavulanate 1 tab PO BID #20 tab 06/29/20 [Augmentin] ketorolac 10 mg PO Q6H PRN #20 tab 06/29/20 Allergies Allergy/AdvReac Type Severity Reaction Status Date / Time No Known Drug Allergies Allergy Verified 12/10/19 10:02 Review of Systems Constitutional Constitutional: Denies chills, Denies fatigue, Denies fever(s), Denies frequent falls, Reports headache(s), Denies lethargy and Denies weakness Eyes Eyes: Denies change in vision, Denies eye discharge, Denies irritation and Denies loss of vision ENT Ears, Nose, Mouth, and Throat: Denies change in voice, Reports dental pain, Denies dizziness, Reports headache(s), Denies neck pain, Denies sore throat and Denies throat swelling Cardiovascular Cardiovascular: Denies chest pain, Denies irregular heart rhythm, Denies lightheadedness, Denies palpitations, Denies dyspnea, Denies dyspnea on exertion and Denies orthopnea Respiratory Respiratory: Denies cough, Denies dyspnea, Denies dyspnea on exertion and Denies wheezing Gastrointestinal Gastrointestinal: Denies abdominal pain, Denies change in bowel habits, Denies diarrhea, Denies nausea and Denies vomiting Musculoskeletal Musculoskeletal: Denies neck pain and Denies numbness Integumentary/Breasts Skin/Breast: Denies pruritus, Denies erythema, Denies rash and Denies wounds Neurologic Neurologic: Denies behavioral changes, Denies confusion, Denies dizziness, Denies frequent falls, Reports headache(s), Denies loss of vision, Denies numbness and Denies weakness Psychiatric Psychiatric: Denies anxiety, Denies behavioral changes, Denies confusion, Denies depression, Denies homicidal ideation and Denies suicidal ideation Endocrine Endocrine: Denies fatigue, Denies flushing and Denies palpitations Hematologic/Lymphatic Hematologic/Lymphatic: Denies easy bruising Allergic/Immunologic Allergic/Immunologic: Denies urticaria, Denies throat swelling and Denies wheezing Patient History Medical History Anxiety (~2002) Chicken pox (~1992) Depression (~2002) Elevated blood pressure reading in office with white coat syndrome, without diagnosis of hypertension Encounter for tobacco use cessation counseling Hypertension (~2015) Hypertriglyceridemia Pulmonary nodule Substance abuse (~2002) Tobacco use disorder Vision disorder Surgical History Anesthesia History of knee surgery Family History Father Diabetes mellitus Mother Hypertension Sister Depression Anxiety Grandfather Cancer Grandmother Cancer Social History Smoking Status: Former smoker Smoking Status: Former smoker alcohol intake frequency: holidays/special occasions only Substance Use Type: does not use and marijuana Exam Narrative Exam Narrative: GENERAL: [44] year old patient appears stated age. Well- nourished, well-developed patient, in mild distress. GCS 15 HEAD: Atraumatic. Normocephalic. No obvious facial swelling EYES: Pupils equal round and reactive. Extraocular motions intact. No scleral icterus. No injection or drainage. ENT: Poor dentition throughout, no obvious intraoral swelling, fluctuance or drainage, fractured tooth 16. Nose without bleeding, purulent drainage. Throat without erythema, tonsillar hypertrophy or exudate. Airway patent. NECK: Trachea midline. Non tender CARDIOVASCULAR: Regular rate and rhythm without murmurs, gallops, or rubs. RESPIRATORY: Clear to auscultation. Breath sounds equal bilaterally. No wheezes, rales, or rhonchi. GASTROINTESTINAL: Abdomen soft, non-tender, nondistended. EXTREMITIES: No edema or joint tenderness. BACK: Nontender without deformity or crepitance. No flank tenderness. NEURO: AOx3. SKIN: No rash or erythema of visible areas Initial Vital Signs Initial Vital Signs: Vital Signs Temperature 99.0 F 06/29/20 19:36 Pulse Rate 77 06/29/20 19:36 Respiratory Rate 18 06/29/20 19:36 Blood Pressure 141/79 H 06/29/20 19:36 Pulse Oximetry 98 06/29/20 19:36 Course Orders Ordered: Discontinued Medications Amoxicillin/Clavulanate Potassium (Amoxicillin/Clav 875/125 Mg) 1 tab PO NOW ONE Stop: 06/29/20 19:47 Last Admin: 06/29/20 19:57 Dose: 1 tab Documented by: STACY Ketorolac Tromethamine (Ketorolac 30 Mg/Ml Vial) 30 mg IM NOW ONE Stop: 06/29/20 19:47 Last Admin: 06/29/20 19:57 Dose: 30 mg Documented by: STACY Vital Signs Vital signs: Vital Signs - 8 hr 06/29/20 19:36 Temperature 99.0 F Pulse Rate 77 Respiratory Rate 18 Blood Pressure 141/79 H Pulse Oximetry 98 MDM - Dental/Oral MDM Narrative Medical decision making narrative: Headache considerations include, but not limited to: Subarachnoid hemorrhage, but unlikely as patient denies sudden onset of pain, not worst of life, or neck pain Meningitis considered, but thought unlikely given lack of Brudzinski's, Kernig's sign, altered mental status or fever Giant cell arteritis considered, but thought unlikely given lack of unilateral findings, pain in yarsanism, vision change HTN Emergency considered, but thought unlikely given normal vitals Other serious diagnoses considered unlikely given lack of red flag findings such as sudden onset, increasing frequency, immunocompromise, systemic signs (fever, chills, stiff neck, or rash), focal neurologic findings, trauma, blood thinners, etc. Headache thought to be likely to dental problems. Antibiotics chosen for his dental pain given the report of recent episodes of facial swelling and extensive history of dental trouble. Discharge Plan Departure Patient Disposition: Home Clinical Impression: Chronic dental pain, Dental infection Headache Qualifiers: Headache type: unspecified Headache chronicity pattern: unspecified pattern Intractability: not intractable Qualified Code(s): R51.9 - Headache, unspecified Activity Restrictions/Additional Instructions: *You have been diagnosed with [dental infection associated headache] *What to do: *Take medications as directed: Prescriptions were electronically transmitted to [facility] at your request *Follow up with your primary care provider in 2-3 days, call for an appointment. Let them know you were seen in the Emergency Department and that we ask that you be seen in follow up. I have given you contact information for the local dentist as we discussed, if they are unable to help you with a will least be a good resource for home you may contact next *Return to ER if you should have any new, worsening or concerning symptoms, such as [shaking chills, facial swelling, difficulty swallowing, fever > 101F, neck pain or stiffness, vomiting, confusion, seizure, focal weakness, vision change, speech deficit or other concerning symptoms ] Prescriptions: New ketorolac 10 mg tablet 10 mg PO Q6H PRN (Reason: pain) Qty: 20 RF: 0 amoxicillin-pot clavulanate [Augmentin] 875-125 mg tablet 1 tab PO BID Qty: 20 RF: 0 No Action bupropion HCl 300 mg tablet extended release 24 hr 300 mg PO QAM Qty: 90 RF: 0 buprenorphine-naloxone [Suboxone] 12-3 mg film See Rx Instructions SL DAILY RF: 0 hydroxyzine HCl 10 mg tablet 10 mg PO QID PRN (Reason: anxiety) Qty: 120 RF: 5 bupropion HCl 150 mg tablet extended release 24 hr 150 mg PO QAM Qty: 90 RF: 3 Chantix Continuing Month Box 1 mg tablet 1 mg PO BID Qty: 56 RF: 5 sulfamethoxazole-trimethoprim 800-160 mg tablet 1 tab PO Q12H Qty: 28 RF: 0 silver sulfadiazine 1 % cream 1 applictn TOP DAILY Qty: 25 RF: 0 Referrals: Jet Hi DMD [Physician] - Alexandra Vidal ARNP [Primary Care Provider] -
[2020-06-29 19:36] VITALS: BP 141/79; PULSE 77; RESP 18; TEMP 37.2; O2SAT 98
[2020-06-29] MEDS: AMOXICILLIN/CLAV 875/125 MG 1 TAB PO (19:57)
[2020-06-29] MEDS: KETOROLAC 30 MG/ML VIAL IM (19:57)
== END 2020-06-29 20:12 | disposition home or self-care (01) ==
PROVIDERS: Emergency Provider Emergency Medicine; Family Provider Nurse Practitioner; PCP Nurse Practitioner
DX: K04.7 Periapical abscess without sinus (principal); K08.89 Other specified disorders of teeth and supporting structures; R51.9 Headache, unspecified
CPT/HCPCS: 96372; 99283; J1885

== ENCOUNTER → 2021-05-05 16:13 | Outpatient (CLI) | payer OTHER, MEDICAID, SELFPAY ==
[2021-05-05 16:48] LABS: Add Manual Diff / Slide Review NO; Basophils Absolute Auto 100 /uL (0-100); Basophils Percent Auto 1.3 % (0-2); Eosinophils Absolute Auto 200 /uL (0-450); Eosinophils Percent Auto 2.2 % (2-4); Hematocrit 42.1 % (41-53); Hemoglobin 13.8 g/dL (13.5-17.5); Lymphocytes Absolute Auto 2700 /uL (1100-4500); Lymphocytes Percent Auto 28.9 % (25-40); Mean Corpuscular HGB Conc 32.8 % (30-36); Mean Corpuscular Hemoglobin 26.3 PG (26-34); Mean Corpuscular Volume 80.2 fL (80-100); Monocytes Absolute Auto 800 /uL (0-900); Monocytes Percent Auto 8.8 % (3-14); Neutrophils Absolute Auto 5400 /uL (1500-7000); Neutrophils Percent Auto 58.8 % (50-75); Platelet Count 318 X10^3/uL (150-400); Red Blood Cell Count 5.25 X10^6/uL (4.5-5.9); Red Cell Distribution Width 13.9 % (11.6-14.8); White Blood Cell Count 9.2 X10^3/uL (4.5-11.0)
[2021-05-05 17:08] LABS: Hemoglobin A1C% w Est Avg Glu 5.7 % (4.0-6.0)
[2021-05-05 17:10] LABS: Alanine Aminotransferase 48 IU/L (<50); Albumin 4.4 g/dL (3.5-5.0); Albumin Globulin Ratio 1.3 (1.0-2.8); Alkaline Phosphatase 54 U/L (38-126); Aspartate Aminotransferase 40 IU/L (17-59); BUN Creatinine Ratio 13.3 (6-22); Bilirubin Total 0.5 mg/dL (0.2-1.3); Blood Urea Nitrogen 15 mg/dL (9-20); Calcium 9.3 mg/dL (8.4-10.2); Carbon Dioxide 31 mmol/L (22-32); Chloride 105 mmol/L (98-107); Cholesterol 219 mg/dL (140-199); Estimated Glomerular Filt Rate > 60.0 mL/min (>60); Globulin 3.5 g/dL (1.7-4.1); Glucose 96 mg/dL (70-100); HDL Cholesterol 53 mg/dL (40-60); HEMOLYSIS 21 (0-50); LDL Cholesterol Calculated 115 mg/dL (<100); Potassium 4.3 mmol/L (3.4-5.1); Sodium 139 mmol/L (137-145); Total Protein 7.9 g/dL (6.3-8.2); Triglycerides 255 mg/dL (35-150)
[2021-05-05 17:25] LABS: Free T4, Direct Thyroxine 1.29 ng/dL (0.78-2.19)
[2021-05-05 17:39] LABS: Thyroid Stimulating Hormone 1.23 uIU/mL (0.47-4.68)
== END ==
PROVIDERS: Family Provider Nurse Practitioner; PCP Nurse Practitioner; Referring Provider Nurse Practitioner; Visit Provider Nurse Practitioner
DX: Z00.00 Encounter for general adult medical examination without abnormal findings (principal); F32.9 Major depressive disorder, single episode, unspecified; F41.9 Anxiety disorder, unspecified; E78.1 Pure hyperglyceridemia; R63.4 Abnormal weight loss; R03.0 Elevated blood-pressure reading, without diagnosis of hypertension
CPT/HCPCS: 36415; 80053; 80061; 83036; 84439; 84443; 84481; 85025

== ENCOUNTER → 2022-05-18 08:04 | Outpatient (CLI) | payer OTHER, MEDICAID, SELFPAY ==
[2022-05-18 08:29] LABS: Hematocrit 42.1 % (41-53); Hemoglobin 13.6 g/dL (13.5-17.5); Mean Corpuscular HGB Conc 32.2 % (30-36); Mean Corpuscular Hemoglobin 26.2 PG (26-34); Mean Corpuscular Volume 81.1 fL (80-100); Platelet Count 348 X10^3/uL (150-400); Red Blood Cell Count 5.19 X10^6/uL (4.5-5.9); Red Cell Distribution Width 13.7 % (11.6-14.8); White Blood Cell Count 5.5 X10^3/uL (4.5-11.0)
[2022-05-18 09:09] LABS: Free T3, Triiodothyronine Free 5.17 pg/mL (2.77-5.27); Free T4, Direct Thyroxine 1.19 ng/dL (0.78-2.19)
[2022-05-18 09:15] LABS: Alanine Aminotransferase 46 IU/L (<50); Albumin 4.3 g/dL (3.5-5.0); Albumin Globulin Ratio 1.2 (1.0-2.8); Alkaline Phosphatase 88 U/L (38-126); Aspartate Aminotransferase 40 IU/L (17-59); Bilirubin Total 0.5 mg/dL (0.2-1.3); Blood Urea Nitrogen 19 mg/dL (9-20); Calcium 8.9 mg/dL (8.4-10.2); Carbon Dioxide 30 mmol/L (22-32); Chloride 102 mmol/L (98-107); Cholesterol 226 mg/dL (140-199); Estimated Glomerular Filt Rate > 60 mL/min (>60); Globulin 3.7 g/dL (1.7-4.1); Glucose 91 mg/dL (70-100); HDL Cholesterol 60 mg/dL (40-60); HEMOLYSIS < 15 (0-50); LDL Cholesterol Calculated 138 mg/dL (<100); Sodium 138 mmol/L (137-145); Triglycerides 138 mg/dL (35-150)
[2022-05-18 09:22] LABS: Thyroid Stimulating Hormone 1.17 uIU/mL (0.47-4.68)
[2022-05-19 16:56] LABS: HIV 1 & 2 Ab/Ag 4th Gen Combo NEGATIVE (NEGATIVE); Hep C Virus Ab w/Reflex Quant NEGATIVE s/c (NEGATIVE)
== END ==
PROVIDERS: Family Provider Nurse Practitioner; PCP Nurse Practitioner; Referring Provider Nurse Practitioner; Visit Provider Nurse Practitioner
DX: Z00.00 Encounter for general adult medical examination without abnormal findings (principal); Z11.4 Encounter for screening for human immunodeficiency virus [HIV]; Z11.59 Encounter for screening for other viral diseases
CPT/HCPCS: 36415; 80053; 80061; 84439; 84443; 84481; 85027; 86803; 87389

== ENCOUNTER → 2022-08-22 15:51 | Outpatient (CLI) | payer OTHER, MEDICAID, SELFPAY ==
[2022-08-22 18:01] LABS: Free T3, Triiodothyronine Free 5.19 pg/mL (2.77-5.27); Free T4, Direct Thyroxine 1.09 ng/dL (0.78-2.19)
[2022-08-26 08:25] LABS: Percent Free Testosterone 1.69 % (1.50-4.20); Testosterone Free 2.49 ng/dL (5.00-21.00); Testosterone Total 147.2 ng/dL (264.0-916.0)
== END ==
PROVIDERS: Family Provider Nurse Practitioner; PCP Nurse Practitioner; Referring Provider Nurse Practitioner; Visit Provider Nurse Practitioner
DX: N52.9 Male erectile dysfunction, unspecified (principal); R53.83 Other fatigue
CPT/HCPCS: 36415; 84402; 84403; 84439; 84443; 84481

== ENCOUNTER → 2023-01-03 15:14 | Outpatient (CLI) | payer OTHER, MEDICAID, SELFPAY ==
[2023-01-03 18:34] LABS: Prostate Specific Antigen Scrn 0.128 ng/mL (0.1-4.0)
[2023-01-03 19:08] LABS: Creatinine Urine Random 148.2 mg/dL
[2023-01-03 19:26] LABS: Microalbumin Urine Random < 0.6 mg/dL (0-1.6)
[2023-01-10 10:02] LABS: Percent Free Testosterone 1.53 % (1.50-4.20); Testosterone Free 2.57 ng/dL (5.00-21.00); Testosterone Total 167.9 ng/dL (264.0-916.0)
== END ==
PROVIDERS: Family Provider Nurse Practitioner; PCP Nurse Practitioner; Referring Provider Nurse Practitioner; Visit Provider Nurse Practitioner
DX: Z00.00 Encounter for general adult medical examination without abnormal findings (principal); R79.89 Other specified abnormal findings of blood chemistry; Z12.5 Encounter for screening for malignant neoplasm of prostate
CPT/HCPCS: 36415; 82043; 82570; 84402; 84403; G0103

== ENCOUNTER 2023-05-02 07:58 | Day surgery (SDC) | payer OTHER, MEDICAID, SELFPAY ==
[2023-05-02 08:21] VITALS: BP 141/89; PULSE 85; RESP 18; TEMP 36.1; O2SAT 96
[2023-05-02] MEDS: LACTATED RINGERS 1,000 ML 42 ML IV (08:27)
--- NOTE | 2023-05-02 08:34 | P.HP_ITS ---
History of Present Illness History of Present Illness Date Patient Seen: 05/02/23 Time Patient Seen: 08:34 Chief complaint: Colonoscopy Narrative: 47-year-old man here for screening colonoscopy. No previous colonoscopy. No abdominal concerns today. No first-degree family members with history of colon cancer his grandfather in mid 50s from colon cancer. [facility] Medical History Erectile dysfunction Low testosterone in male Uncomplicated opioid use Insomnia History of tobacco use disorder Family history of colon cancer requiring screening colonoscopy Unintentional weight loss Pulmonary nodule Elevated blood pressure reading in office with white coat syndrome, without diagnosis of hypertension Encounter for tobacco use cessation counseling Tobacco use disorder Hypertriglyceridemia Obesity (BMI 35.0-39.9 without comorbidity) Intermittent right upper quadrant abdominal pain Infected tooth Vision disorder Substance abuse (~2002) Depression (~2002) Anxiety (~2002) Chicken pox (~1992) Opiate dependence Unwanted fertility Hypertension (~2015) Surgical History S/P vasectomy Anesthesia History of knee surgery Family History Father Diabetes mellitus Mother Hypertension Sister Depression Anxiety Grandfather Cancer Grandmother Cancer Social History Smoking Status: Former smoker alcohol intake: never Meds Home Medications and Allergies Home Medications Medication Instructions Recorded Confirmed Type tadalafil 20 mg tablet 20 mg PO DAILY PRN sexual activity 05/10/21 05/02/23 Rx #30 tabs bupropion HCl 150 mg 24 hr tablet, 150 mg PO QAM #90 tabs 05/23/22 05/02/23 Rx extended release bupropion HCl 300 mg 24 hr tablet, See Rx Instructions .Route 05/23/22 05/02/23 Rx extended release .COMPLEX #90 tabs hydroxyzine pamoate 50 mg capsule 50 mg PO QID PRN Insomnia or 05/23/22 05/02/23 Rx anxiety #360 caps phentermine 37.5 mg tablet 37.5 mg PO BID #180 tabs 01/05/23 05/02/23 Rx testosterone cypionate 200 mg/mL 100 mg (0.5 mL) IM Q2W #1 mL 01/18/23 05/02/23 Rx intramuscular oil (Depo-Testosterone) buprenorphine 8 mg-naloxone 2 mg 2.5 film buccal DAILY substance 05/01/23 05/02/23 Rx sublingual film (Suboxone) use disorder 30 days #45 ea Allergies Allergy/AdvReac Type Severity Reaction Status Date / Time No Known Drug Allergies Allergy Verified 05/02/23 08:13 Exam Vital Signs (past 8 hours): - 05/02/23 08:21 Temperature 96.9 F L Pulse Rate 85 Respiratory Rate 18 Blood Pressure 141/89 H Pulse Oximetry 96 Oxygen Delivery Method Room Air Oxygen Delivery Method Room Air Narrative Exam Narrative: General adult man alert oriented no acute distress Chest nonlabored respiration Extremities warm well perfused Assessment & Plan Assessment & Plan narrative: The patient requires colorectal screening and colonoscopy is recommended. Technical details were discussed. Risks, benefits, alternatives explained. Risks including but not limited to myocardial infarction, aspiration, bleeding, pain, missed lesion, incomplete examination, need for further radiographic studies, colonic perforation, and need for major abdominal surgery were discussed. All questions were answered to their satisfaction, and they are in agreement with this plan.
[2023-05-02 09:01] VITALS: BP 103/63; PULSE 78; RESP 16; TEMP 37; O2SAT 95
--- NOTE | 2023-05-02 09:02 | P.OP.COLON_ITS ---
Operative Date/Time/Diagnoses Date of procedure: 05/02/23 Time of procedure: 09:02 Pre-op diagnosis: Colorectal screening Procedure & Clinicians Study performed: Colonoscopy Same procedure as scheduled: Yes Indications: Colorectal screening Surgeon: Dejan Retana Procedure Notes Procedure in detail: The history and physical was performed/updated and the patient is ASA class is 2. The procedure was discussed in detail with the patient. Potential risks complications including infection, bleeding, missed diagnosis, perforation, need for surgery, and were explained. Their questions were answered and informed consent was obtained. Patient was brought to the procedure room and placed standard monitoring equipment. The patient's vital signs were monitored continuously throughout the entire procedure. Prior to starting time-out was performed. The patient was placed in the left lateral recumbent position. Procedural sedation was administered by anesthesia. Examination began with a thorough inspection of the perianal area there was no evidence of fissures, fistulae, external hemorrhoids or cutaneous malignancy. The colonoscopy scope was then placed into the anal canal and was advanced to the cecum, which was identified by the ileocecal valve , the appendiceal orifice and the confluence of the taenia. The scope was then slowly withdrawn examining colon thoroughly in all directions, irrigating it of any residual stool. The scope was retroflexed within the rectum The patient tolerated the procedure well. They will be discharged once criteria are met. The prep was of good/excellent quality. The withdrawl time was 6 minutes. FINDINGS * Unremarkable colonoscopy. Normal healthy colonic mucosa without masses polyps or inflammation. Specimen(s): none sent Impression: Normal colonoscopy Post-procedure Recommendations: Colonoscopy in 10 years Disposition: same day surgery
[2023-05-02 09:05] VITALS: BP 95/68; PULSE 89; RESP 22; O2SAT 95
[2023-05-02 09:10] VITALS: BP 118/79; PULSE 77; RESP 13; TEMP 36.8; O2SAT 94
== END 2023-05-02 09:20 | disposition home or self-care (01) ==
PROVIDERS: Family Provider Nurse Practitioner; PCP Nurse Practitioner; Referring Provider Surgery; Visit Provider Surgery
PROC: 0DJD8ZZ Inspection of Lower Intestinal Tract, Via Natural or Artificial Opening Endoscopic (ICD-10-PCS; CPT 45378; principal; 2023-05-02 08:45)
DX: Z12.11 Encounter for screening for malignant neoplasm of colon (principal)
CPT/HCPCS: 45378; J2704

== ENCOUNTER → 2023-06-19 16:18 | Outpatient (CLI) | payer OTHER, MEDICAID, SELFPAY ==
[2023-06-19 17:37] LABS: Add Manual Diff / Slide Review NO; Basophils Absolute Auto 300 /uL (0-100); Basophils Percent Auto 2.1 % (0-2); Eosinophils Absolute Auto 400 /uL (0-450); Eosinophils Percent Auto 3.4 % (2-4); Hematocrit 47.1 % (41-53); Hemoglobin 15.3 g/dL (13.5-17.5); Lymphocytes Absolute Auto 2900 /uL (1100-4500); Lymphocytes Percent Auto 21.6 % (25-40); Mean Corpuscular HGB Conc 32.4 % (30-36); Mean Corpuscular Hemoglobin 26.6 PG (26-34); Monocytes Absolute Auto 1200 /uL (0-900); Monocytes Percent Auto 8.9 % (3-14); Neutrophils Absolute Auto 8500 /uL (1500-7000); Platelet Count 412 X10^3/uL (150-400); Red Blood Cell Count 5.75 X10^6/uL (4.5-5.9); Red Cell Distribution Width 14.3 % (11.6-14.8); White Blood Cell Count 13.3 X10^3/uL (4.5-11.0)
[2023-06-19 18:39] LABS: Alanine Aminotransferase 37 IU/L (<50); Albumin 4.6 g/dL (3.5-5.0); Albumin Globulin Ratio 1.5 (1.0-2.8); Alkaline Phosphatase 75 U/L (38-126); Aspartate Aminotransferase 47 IU/L (17-59); BUN Creatinine Ratio 9.1 (6-22); Bilirubin Total 0.5 mg/dL (0.2-1.3); Blood Urea Nitrogen 9 mg/dL (9-20); Calcium 9.6 mg/dL (8.4-10.2); Carbon Dioxide 33 mmol/L (22-32); Chloride 105 mmol/L (98-107); Cholesterol 177 mg/dL (140-199); Estimated Glomerular Filt Rate > 60 mL/min (>60); Globulin 3.1 g/dL (1.7-4.1); Glucose 86 mg/dL (70-100); HDL Cholesterol 50 mg/dL (40-60); HEMOLYSIS < 15 (0-50); LDL Cholesterol Calculated 72 mg/dL (<100); Potassium 4.2 mmol/L (3.4-5.1); Sodium 140 mmol/L (137-145); Total Protein 7.7 g/dL (6.3-8.2); Triglycerides 275 mg/dL (35-150)
[2023-06-19 18:55] LABS: Free T3, Triiodothyronine Free 5.88 pg/mL (2.77-5.27); Free T4, Direct Thyroxine 0.85 ng/dL (0.78-2.19)
[2023-06-19 19:08] LABS: Thyroid Stimulating Hormone 1.46 uIU/mL (0.47-4.68)
== END ==
PROVIDERS: Family Provider Nurse Practitioner; PCP Nurse Practitioner; Referring Provider Nurse Practitioner; Visit Provider Nurse Practitioner
DX: Z00.00 Encounter for general adult medical examination without abnormal findings (principal)
CPT/HCPCS: 36415; 80053; 80061; 84439; 84443; 84481; 85025

== ENCOUNTER → 2023-06-21 16:26 | Outpatient (CLI) | payer OTHER, MEDICAID, SELFPAY | PROVIDERS: Family Provider Nurse Practitioner; PCP Nurse Practitioner; Referring Provider Nurse Practitioner; Visit Provider Nurse Practitioner | DX: N52.9 Male erectile dysfunction, unspecified (principal); R79.89 Other specified abnormal findings of blood chemistry; E29.1 Testicular hypofunction | CPT/HCPCS: 36415; 84402; 84403; 93005 ==

== ENCOUNTER 2024-06-02 02:37 | Emergency (ER) | payer OTHER, SELFPAY | END 2024-06-02 03:41 | disposition left against medical advice (07) | PROVIDERS: Emergency Provider Emergency Medicine; Family Provider Nurse Practitioner; PCP Student in an Organized Health Care Education/Training Program | DX: R07.9 Chest pain, unspecified (principal) ==

== ENCOUNTER 2024-06-10 22:21 | Emergency (ER) | payer OTHER, SELFPAY ==
[2024-06-10 22:27] VITALS: BP 154/102; PULSE 90; RESP 17; TEMP 37.2; O2SAT 97; BMI 31.7
--- NOTE | 2024-06-10 23:15 | DI.US.S_ITS ---
PROCEDURE: US PERIPH VENOUS LOW EXTREM RT INDICATIONS: PAIN, EDEMA TECHNIQUE: Real-time imaging, as well as color and pulse Doppler interrogation, were performed of the lower extremity deep veins from the inguinal ligament to the popliteal fossa, with documentation of the visualized calf veins. COMPARISON: None. FINDINGS: The common femoral, femoral, popliteal, and the visualized calf veins are normally compressible, and free of intraluminal thrombus. Color and pulse Doppler demonstrate normal phasic intraluminal flow. There is normal augmentation response to distal compression maneuver. IMPRESSION: No findings of lower extremity deep venous thrombosis. Approved by: Shahzad Mallory M.D. on 06/10/2024 at 23:49
[2024-06-11 00:09] VITALS: PULSE 74; O2SAT 96
[2024-06-11 00:10] VITALS: BP 139/85; PULSE 74; RESP 17; TEMP 36.8; O2SAT 97
--- NOTE | 2024-06-11 01:05 | ED.EXTPRO ---
HPI - Extremity Problem General Chief complaint: Extremity Problem,Nontraumatic Stated complaint: R lower leg swelling Time Seen by Provider: 06/11/24 01:05 Source: patient Mode of arrival: Ambulatory History of Present Illness HPI Narrative: Patient is a 48-year-old male history of depression chronic Suboxone use presenting today with right leg swelling. He reports it has been like that for about 24 hours. He reports he was very active up on his feet working all day denies any recent travel no prior history of blood clot. He denies any sort of pain. He has had chronic ongoing left arm pain with exertion and resolves at rest. He was scheduled to have a stress test and a couple of weeks. But he denies any chest pain arm pain or shortness of breath now. It is not any worse. Denies any fever or chills Related Data Previous Rx's Medication Instructions Recorded tadalafil 20 mg tablet 20 mg PO DAILY PRN sexual activity 05/10/21 #30 tabs hydroxyzine pamoate 50 mg capsule 50 mg PO QID PRN Insomnia or 06/12/23 anxiety #360 caps tirzepatide 2.5 mg/0.5 mL 5 mg SUBCUT QWEEK #2 mL 11/01/23 subcutaneous pen injector bupropion HCl 300 mg 24 hr tablet, 300 mg PO DAILY #30 tabs 04/29/24 extended release bupropion HCl 150 mg 24 hr tablet, 150 mg PO QAM #90 tabs 05/13/24 extended release buprenorphine 8 mg-naloxone 2 mg 2.5 film buccal DAILY substance 05/21/24 sublingual film (Suboxone) use disorder 30 days #75 ea testosterone cypionate 200 mg/mL 100 mg (0.5 mL) IM Q2W #1 mL 05/21/24 intramuscular oil (Depo-Testosterone) tirzepatide 2.5 mg/0.5 mL 2.5 mg (0.5 mL) SUBCUT QWEEK #2 mL 05/21/24 subcutaneous pen injector Allergies Allergy/AdvReac Type Severity Reaction Status Date / Time No Known Drug Allergies Allergy Verified 06/10/24 22:37 Patient History Medical History Class 2 obesity Hypogonadism in male Erectile dysfunction Low testosterone in male Uncomplicated opioid use Insomnia History of tobacco use disorder Family history of colon cancer requiring screening colonoscopy Unintentional weight loss Pulmonary nodule Elevated blood pressure reading in office with white coat syndrome, without diagnosis of hypertension Encounter for tobacco use cessation counseling Tobacco use disorder Hypertriglyceridemia Obesity (BMI 35.0-39.9 without comorbidity) Intermittent right upper quadrant abdominal pain Infected tooth Vision disorder Substance abuse (~2002) Depression (~2002) Anxiety (~2002) Chicken pox (~1992) Opiate dependence Unwanted fertility Hypertension (~2015) Surgical History S/P vasectomy Anesthesia History of knee surgery Family History Father Diabetes mellitus Mother Hypertension Sister Depression Anxiety Grandfather Cancer Grandmother Cancer Social History Smoking Status: Former smoker alcohol intake: never Smoking Status: Former smoker tobacco type: cigarettes alcohol intake frequency: holidays/special occasions only Exam Initial Vital Signs Initial Vital Signs: Vital Signs Temperature 98.9 F 06/10/24 22:27 Pulse Rate 90 06/10/24 22:27 Respiratory Rate 17 06/10/24 22:27 Blood Pressure 154/102 H 06/10/24 22:27 Pulse Oximetry 97 06/10/24 22:27 Oxygen Delivery Method Room Air 06/10/24 22:27 GENERAL: Alert pleasant well-appearing 48 male and in [no acute] distress. HEENT: Head atraumatic,EOMI, pupils reactive, face symmetric, [moist] mucous membranes CARDIOVASCULAR: Regular rate and rhythm without murmurs, rubs or gallops. RESPIRATORY: Breath sounds equal bilaterally, no wheezes rales or rhonchi. EXTREMITIES: Normal range of motion, no clubbing or edema. Neurovascularly intact Right lower extremity is more swollen than the left no significant tenderness in the calf more anterior pain non erythematous distal pedal pulse intact knee is stable NEUROLOGICAL: Alert and oriented x4.Normal gait and speech. SKIN: Warm, dry, no laceration, no petechiae, no rashes or lesions. Course Orders Ordered: ED Orders 06/10/24 23:15 US periph venous low extrem rt Stat Vital Signs Vital signs: Vital Signs - 8 hr 06/10/24 22:27 06/11/24 00:09 06/11/24 00:10 Temperature 98.9 F Pulse Rate 90 74 Respiratory Rate 17 Blood Pressure 154/102 H 139/85 Pulse Oximetry 97 96 Oxygen Delivery Method Room Air 06/11/24 00:10 06/11/24 01:23 06/11/24 01:23 Temperature 98.3 F Pulse Rate 74 76 Respiratory Rate 17 17 Blood Pressure 144/84 H Pulse Oximetry 97 98 Oxygen Delivery Method Room Air Room Air MDM - Extremity (Nontraumatic) Imaging Data US - DVT: Radiologist's Impression: PROCEDURE: US PERIPH VENOUS LOW EXTREM RT INDICATIONS: PAIN, EDEMA TECHNIQUE: Real-time imaging, as well as color and pulse Doppler interrogation, were performed of the lower extremity deep veins from the inguinal ligament to the popliteal fossa, with documentation of the visualized calf veins. COMPARISON: None. FINDINGS: The common femoral, femoral, popliteal, and the visualized calf veins are normally compressible, and free of intraluminal thrombus. Color and pulse Doppler demonstrate normal phasic intraluminal flow. There is normal augmentation response to distal compression maneuver. IMPRESSION: No findings of lower extremity deep venous thrombosis. Approved by: Shahzad Mallory M.D. on 06/10/2024 at 23:49 [facility] Narrative Medical decision making narrative: Patient presenting today with a acute right lower leg swelling no evidence of DVT on ultrasound or cellulitis on exam. Unclear what is causing swelling. I do recommend patient wear compression socks and that repeat ultrasound in 7-10 days. He was an outpatient stress test scheduled in not having any worsening chest discomfort at this time. Discharge Plan Departure Patient Disposition: Home Clinical Impression: Leg swelling Instructions: DI for Peripheral Edema-Unilateral Activity Restrictions/Additional Instructions: *You have been diagnosed with peripheral edema *What to do: At this time I do recommend compression socks repeat ultrasound in 7-10 days with PCP. Please follow-up with outpatient stress test. *Continue to take medications as directed *Follow up with your primary care provider in 2-3 days or call [phone] *Return to ER if you should have increasing leg pains chest pain shortness of breath swelling redness or any new, worsening or concerning symptoms Prescriptions: No Action buprenorphine-naloxone [Suboxone] 8-2 mg film 2.5 film buccal DAILY 30 Days Qty: 75 3RF testosterone cypionate [Depo-Testosterone] 200 mg/mL oil 100 mg IM Q2W Qty: 1 5RF tirzepatide 2.5 mg/0.5 mL pen injector 2.5 mg SUBCUT QWEEK Qty: 2 3RF Rx Instructions: for 4 weeks hydroxyzine pamoate 50 mg capsule 50 mg PO QID PRN (Reason: Insomnia or anxiety) Qty: 360 1RF Rx Instructions: Take 1 capsule up to 4x/day as needed for anxiety and insomnia. tirzepatide 2.5 mg/0.5 mL pen injector 5 mg SUBCUT QWEEK Qty: 2 3RF Rx Instructions: Inject 5mg SQ weekly. Ok to compound bupropion HCl 300 mg tablet extended release 24 hr 300 mg PO DAILY Qty: 30 4RF bupropion HCl 150 mg tablet extended release 24 hr 150 mg PO QAM Qty: 90 2RF tadalafil 20 mg tablet 20 mg PO DAILY PRN (Reason: sexual activity) Qty: 30 3RF Rx Instructions: administer 1/4 to 1/2 approximately 30min before sexual activity; do not use more than 1 dose per 24hrs Referrals: Rachael Davis MD [Primary Care Provider] - Stand Alone Forms: Patient Portal/API/Survey
[2024-06-11 01:23] VITALS: BP 144/84; PULSE 76; RESP 17; O2SAT 98
== END 2024-06-11 01:29 | disposition home or self-care (01) ==
PROVIDERS: Emergency Provider Emergency Medicine; Family Provider Nurse Practitioner; PCP Student in an Organized Health Care Education/Training Program
DX: R60.0 Localized edema (principal)
CPT/HCPCS: 93971; 99281; 99283

== ENCOUNTER → 2024-06-18 15:43 | Outpatient (CLI) | payer OTHER, SELFPAY ==
--- NOTE | 2024-06-18 15:45 | DI.RAD.S_ITS ---
PROCEDURE: XR KNEE RT 3V INDICATIONS: pain and swelling x 1 week incl proximal lower leg TECHNIQUE: 3 views of the knee were acquired. COMPARISON: None. FINDINGS: Bones: No fractures or dislocations. No suspicious bony lesions. Soft tissues: No joint effusion. No suspicious soft tissue calcifications. IMPRESSION: No acute bony abnormality or significant effusion. If there are persistent symptoms or clinical suspicion for pathology, then repeat radiographs or advanced imaging (CT or MRI) may be considered for further evaluation. Dictated by: Malcom Crouch M.D. on 06/18/2024 at 22:04 Approved by: Malcom Crouch M.D. on 06/18/2024 at 22:05
== END ==
PROVIDERS: Family Provider Nurse Practitioner; PCP Student in an Organized Health Care Education/Training Program; Referring Provider Physician Assistant; Visit Provider Physician Assistant
DX: M79.604 Pain in right leg (principal); M79.89 Other specified soft tissue disorders
CPT/HCPCS: 73562

== ENCOUNTER → 2024-06-19 08:23 | Outpatient (CLI) | payer OTHER, SELFPAY ==
[2024-06-19 08:53] LABS: Add Manual Diff / Slide Review NO; Basophils Absolute Auto 100 /uL (0-100); Basophils Percent Auto 1.8 % (0-2); Eosinophils Absolute Auto 200 /uL (0-450); Eosinophils Percent Auto 2.4 % (2-4); Hematocrit 50.1 % (41-53); Hemoglobin 16.4 g/dL (13.5-17.5); Lymphocytes Absolute Auto 1900 /uL (1100-4500); Lymphocytes Percent Auto 24.6 % (25-40); Mean Corpuscular HGB Conc 32.7 % (30-36); Mean Corpuscular Hemoglobin 27.6 PG (26-34); Mean Corpuscular Volume 84.5 fL (80-100); Monocytes Absolute Auto 600 /uL (0-900); Monocytes Percent Auto 8.6 % (3-14); Neutrophils Absolute Auto 4700 /uL (1500-7000); Neutrophils Percent Auto 62.6 % (50-75); Platelet Count 292 X10^3/uL (150-400); Red Blood Cell Count 5.93 X10^6/uL (4.5-5.9); Red Cell Distribution Width 13.6 % (11.6-14.8); White Blood Cell Count 7.5 X10^3/uL (4.5-11.0)
[2024-06-19 08:55] LABS: D Dimer 530 ng/ml (<500)
[2024-06-19 08:59] LABS: Uric Acid 5.2 mg/dL (3.5-8.5)
[2024-06-19 09:43] LABS: Erythrocyte Sedimentation Rate 1 MM/HR (0-15)
== END ==
PROVIDERS: Family Provider Nurse Practitioner; PCP Student in an Organized Health Care Education/Training Program; Referring Provider Physician Assistant; Visit Provider Physician Assistant
DX: M79.89 Other specified soft tissue disorders (principal)
CPT/HCPCS: 36415; 84550; 85025; 85379; 85651

== ENCOUNTER → 2024-06-20 07:36 | Outpatient (CLI) | payer OTHER, SELFPAY ==
--- NOTE | 2024-06-20 07:36 | DI.US.S_ITS ---
PROCEDURE: US [facility] VENOUS LOW EXTREM RT INDICATIONS: swelling lower leg, ddimer >500 TECHNIQUE: Real-time imaging, as well as color and pulse Doppler interrogation, were performed of the lower extremity deep veins from the inguinal ligament to the popliteal fossa, with documentation of the visualized calf veins. COMPARISON: [facility], [facility] VENOUS LOW EXTREM RT, 06/10/2024, 23:22. FINDINGS: The common femoral, femoral, popliteal, and the visualized calf veins are normally compressible, and free of intraluminal thrombus. Color and pulse Doppler demonstrate normal phasic intraluminal flow. There is normal augmentation response to distal compression maneuver. IMPRESSION: No findings of lower extremity deep venous thrombosis. Dictated by: Moe Cohn M.D. on 06/20/2024 at 8:25 Approved by: Moe Cohn M.D. on 06/20/2024 at 8:26
== END ==
PROVIDERS: Family Provider Nurse Practitioner; PCP Student in an Organized Health Care Education/Training Program; Referring Provider Physician Assistant; Visit Provider Physician Assistant
DX: M79.89 Other specified soft tissue disorders (principal)
CPT/HCPCS: 93971

== ENCOUNTER → 2024-06-21 08:34 | Outpatient (CLI) | payer OTHER, SELFPAY ==
--- NOTE | 2024-06-21 08:34 | DI.NM.S_ITS ---
PROCEDURE: NM EXERCISE TREADMILL NON NUC COMPARISON: None. INDICATIONS: chest pain and dyspnea on exertion FINDINGS: Patient exercised per the standard Pedro protocol. Total exercise time was 8 minutes and 39 seconds. Test was terminated secondary to fatigue. Maximal heart rate obtained is 152 bpm which is 87% of maximal predicted heart rate. Maximum blood pressure of 166/[place] [address]. SYLVIA +21%. 10.1 METS. No ischemic changes noted. No arrhythmias present. No chest pains voiced. Normal heart rate and blood pressure response to exercise. IMPRESSION: 1. Negative exercise treadmill stress test for ischemia. 2. Below average exercise tolerance. Dictated by: Walt Fraire M.D. on 06/21/2024 at 12:56 Approved by: Walt Fraire M.D. on 06/21/2024 at 12:57
== END ==
LOC: NUCM 08:34
PROVIDERS: Family Provider Nurse Practitioner; PCP Student in an Organized Health Care Education/Training Program; Referring Provider Student in an Organized Health Care Education/Training Program; Visit Provider Student in an Organized Health Care Education/Training Program
DX: R07.9 Chest pain, unspecified (principal); R06.02 Shortness of breath
CPT/HCPCS: 93017

== ENCOUNTER 2024-12-11 21:50 | Emergency (ER) | payer OTHER, SELFPAY ==
[2024-12-11 22:01] VITALS: BP 159/92; PULSE 74; RESP 16; TEMP 36.8; O2SAT 97; BMI 29.5
--- NOTE | 2024-12-11 22:10 | DI.RAD.S_ITS ---
PROCEDURE: XR FINGER LT MIN 2V INDICATIONS: cut tip of left index finger off TECHNIQUE: AP hand, 2 views of the 2nd finger(s) acquired. COMPARISON: None. FINDINGS: Bones: No fractures or dislocations. No suspicious bony lesions. Soft tissues: Bandaging over the 2nd digit tip. No suspicious soft tissue calcifications. IMPRESSION: No acute fracture is seen. Dictated by: Roberto Hinojosa M.D. on 12/11/2024 at 22:27 Approved by: Roberto Hinojosa M.D. on 12/11/2024 at 22:27
--- NOTE | 2024-12-12 00:56 | ED.WOUNDLAC ---
HPI - Wound/Laceration General Chief Complaint: Wound/Laceration Stated Complaint: Lt index finger laceration Time Seen by Provider: 12/12/24 00:55 Source: patient and old records reviewed Mode of arrival: Ambulatory Limitations: no limitations History of Present Illness HPI narrative: 49-year-old male history of hypertriglyceridemia who accidentally cut his index finger while cutting in the kitchen. Patient states complete avulsion of the tip. States this is about 6:00pm. in the evening he has not been able to get it to stop bleeding so presented to the ED. patient denies any other injuries. States tetanus is not up-to-date. Denies any anticoagulants states he takes Wellbutrin daily. Denies any allergies to medication. Former smoker. Related Data Previous Rx's ?Medication ?Instructions ?Recorded tirzepatide 2.5 mg/0.5 mL 5 mg SUBCUT QWEEK #2 mL 11/01/23 subcutaneous pen injector tirzepatide 2.5 mg/0.5 mL 2.5 mg (0.5 mL) SUBCUT QWEEK #2 mL 05/21/24 subcutaneous pen injector naproxen 500 mg tablet 500 mg PO BID #30 tabs 06/18/24 bupropion HCl 150 mg 24 hr tablet, 150 mg PO QAM #90 tabs 08/20/24 extended release bupropion HCl 300 mg 24 hr tablet, 300 mg PO DAILY #30 tabs 08/20/24 extended release hydroxyzine pamoate 50 mg capsule 50 mg PO QID PRN Insomnia or 08/20/24 anxiety #360 caps atomoxetine 40 mg capsule 40 mg PO DAILY #30 caps 12/05/24 buprenorphine 8 mg-naloxone 2 mg 2.5 film buccal DAILY substance 12/05/24 sublingual film (Suboxone) use disorder 30 days #75 ea testosterone cypionate 200 mg/mL 100 mg (0.5 mL) IM Q2W #1 mL 12/05/24 intramuscular oil (Depo-Testosterone) Allergies Allergy/AdvReac Type Severity Reaction Status Date / Time No Known Drug Allergies Allergy Verified 07/01/24 16:56 Review of Systems Review of Systems ROS Unobtainable: All systems reviewed & are unremarkable except as noted in HPI and below Patient History Medical History Class 2 obesity Hypogonadism in male Erectile dysfunction Low testosterone in male Uncomplicated opioid use Insomnia History of tobacco use disorder Family history of colon cancer requiring screening colonoscopy Unintentional weight loss Pulmonary nodule Elevated blood pressure reading in office with white coat syndrome, without diagnosis of hypertension Encounter for tobacco use cessation counseling Tobacco use disorder Hypertriglyceridemia Obesity (BMI 35.0-39.9 without comorbidity) Intermittent right upper quadrant abdominal pain Infected tooth Vision disorder Substance abuse (~2002) Depression (~2002) Anxiety (~2002) Chicken pox (~1992) Opiate dependence Unwanted fertility Hypertension (~2015) Surgical History S/P vasectomy Anesthesia History of knee surgery Family History Father Diabetes mellitus Mother Hypertension Sister Depression Anxiety Grandfather Cancer Grandmother Cancer Social History Smoking Status: Former smoker alcohol intake: never Smoking Status: Former smoker tobacco type: cigarettes alcohol intake frequency: holidays/special occasions only Exam Narrative Exam Narrative: GENERAL: Alert and oriented x three, male in mild distress HEENT: Head normocephalic, atraumatic, EOMI, pupils reactive, face symmetric, moist mucous membranes NECK: Supple, full range of motion EXTREMITIES: Normal range of motion, no clubbing or edema. Neurovascularly intact. Patient has an oblique avulsion laceration to his 2nd finger on his left hand. There was no exposure of the bone. Majority of the nail is intact but a portion is missing. Patient has cap refill throughout the last rest of the finger. Normal sensation throughout. No other bony tenderness. NEUROLOGICAL: Cranial nerves II through XII grossly intact. Moving all extremities SKIN: Warm, dry, no petechiae, no rashes or lesions. Initial Vital Signs Initial Vital Signs: Vital Signs Temperature 98.3 F 12/11/24 22:01 Pulse Rate 74 12/11/24 22:01 Respiratory Rate 16 12/11/24 22:01 Blood Pressure 159/92 H 12/11/24 22:01 Pulse Oximetry 97 12/11/24 22:01 Oxygen Delivery Method Room Air 12/11/24 22:01 Course Orders Ordered: ED Orders 12/11/24 22:10 XR finger LT min 2V Stat Discontinued Medications Diphtheria/Tetanus/Acell Pertussis (Tet,Diph,Pertuss(Acell),Vac/Pf 0.5 Ml Syringe) 0.5 ml IM .ONCE ONE Stop: 12/12/24 01:11 Last Admin: 12/12/24 01:17 Dose: 0.5 ml Documented By: MATTHIAS Vital Signs Vital signs: Vital Signs - 8 hr 12/11/24 22:01 12/12/24 01:44 Temperature 98.3 F Pulse Rate 74 73 Respiratory Rate 16 18 Blood Pressure 159/92 H 143/83 H Pulse Oximetry 97 96 Oxygen Delivery Method Room Air Room Air MDM - Wound/Laceration MDM Narrative Medical decision making narrative: X-ray shows no acute fracture, no suspicious soft tissue calcifications. No suspicious bony lesions. Patient has a complete avulsion of the distal tip of his finger there was no tissue to suture. Has a persistent slow ooze what bandages removed. Surgicel and Gelfoam was placed with direct pressure and bandage was applied. Tetanus updated. Discharge Plan Departure Patient Disposition: Home Clinical Impression: Avulsion of finger tip Qualifiers: Encounter type: initial encounter Qualified Code(s): S61.209A - Unspecified open wound of unspecified finger without damage to nail, initial encounter Instructions: DI for Avulsion Laceration (Not Requiring Sutures) Activity Restrictions/Additional Instructions: Keep your bandage on for the next 12-24 hours after this timeframe you can remove the bandage but do not remove the foam, let this fall off on it's own. Use a nonstick dressing over the affected area. Wound Care: Keep wound(s) clean and dry. Wash daily with soap and water only. Do not use over the counter products (alcohol or peroxide)on the wounds unless instructed by a physician. You can use triple antibiotic ointment to the affected area. If wound condition worsens (increased/expanding redness, developing fluid blisters, or worsening pain), either contact your doctor for an urgent re-assessment , or return to the Emergency Department. Return if fever greater than 100.4 Fahrenheit, increased swelling, increasing pain or worsening symptoms such as increased discharge or spreading redness. Prescriptions: No Action tirzepatide 2.5 mg/0.5 mL pen injector 2.5 mg SUBCUT QWEEK Qty: 2 3RF Rx Instructions: for 4 weeks naproxen 500 mg tablet 500 mg PO BID Qty: 30 0RF atomoxetine 40 mg capsule 40 mg PO DAILY Qty: 30 3RF testosterone cypionate [Depo-Testosterone] 200 mg/mL oil 100 mg IM Q2W Qty: 1 5RF buprenorphine-naloxone [Suboxone] 8-2 mg film 2.5 film buccal DAILY 30 Days Qty: 75 5RF tirzepatide 2.5 mg/0.5 mL pen injector 5 mg SUBCUT QWEEK Qty: 2 3RF Rx Instructions: Inject 5mg SQ weekly. Ok to compound bupropion HCl 300 mg tablet extended release 24 hr 300 mg PO DAILY Qty: 30 4RF bupropion HCl 150 mg tablet extended release 24 hr 150 mg PO QAM Qty: 90 2RF hydroxyzine pamoate 50 mg capsule 50 mg PO QID PRN (Reason: Insomnia or anxiety) Qty: 360 1RF Rx Instructions: Take 1 capsule up to 4x/day as needed for anxiety and insomnia. Referrals: Rachael Davis MD [Primary Care Provider, Family Practice] Stand Alone Forms: Patient Portal/API
[2024-12-12] MEDS: TET,DIPH,PERTUSS(ACELL),VAC/PF 0.5 ML SYRINGE IM (01:17)
[2024-12-12 01:44] VITALS: BP 143/83; PULSE 73; RESP 18; O2SAT 96
== END 2024-12-12 01:45 | disposition home or self-care (01) ==
PROVIDERS: Emergency Provider Emergency Medicine; Family Provider Nurse Practitioner; PCP Student in an Organized Health Care Education/Training Program
DX: S61.211A Laceration without foreign body of left index finger without damage to nail, initial encounter (principal); W45.8XXA Other foreign body or object entering through skin, initial encounter; Z23 Encounter for immunization
CPT/HCPCS: 73140; 90471; 99283; 90715